=== PATIENT | female | born 1970 | race Caucasian/White ===

== ENCOUNTER 2018-01-06 14:37 | Outpatient (CLI) | payer BC ==
--- NOTE | 2018-01-07 14:38 | MMO ---
BILATERAL SCREENING MAMMOGRAM: Date: 01/06/18 HISTORY: Screening. COMPARISON: Mammograms from 2017, 2014, and 2013. TECHNIQUE: Bilateral screening CC and MLO mammograms. This patient's mammogram was interpreted with the assistance of computer-aided detection. FINDINGS: The breasts are heterogeneously dense, which may obscure small masses. No suspicious mass, architectu ral distortion, or microcalcifications. IMPRESSION: BIRADS 2: Benign Finding(s) Continued annual mammographic screening is recommended. POS: [facility]
== END 2018-01-06 14:38 | disposition home or self-care (01) ==
LOC: SCSMAMMO 14:37
PROVIDERS: ATTEND Obstetrics & Gynecology
DX: Z12.31 Encounter for screening mammogram for malignant neoplasm of breast (principal)
CPT/HCPCS: 77067